=== PATIENT | female | born 1975 | race Caucasian/White ===

== ENCOUNTER 2023-03-08 09:00 | Outpatient (RCR) | payer OTHER, SELFPAY | END 2023-10-07 08:08 | disposition home or self-care (01) | LOC: OT 09:00 | PROVIDERS: PCP Family Medicine; Visit Provider Family Medicine | DX: R51.9 Headache, unspecified (principal) | CPT/HCPCS: 97140; 97530 ==

== ENCOUNTER 2023-10-08 09:09 | Outpatient (RCR) | payer OTHER, SELFPAY | END 2024-07-28 10:53 | disposition home or self-care (01) | LOC: OT 09:09 | PROVIDERS: PCP Family Medicine; Visit Provider Family Medicine | DX: R51.9 Headache, unspecified (principal) | CPT/HCPCS: 97140; 97535 ==

== ENCOUNTER 2024-04-01 13:43 | Outpatient (OUT) | payer OTHER, SELFPAY ==
--- NOTE | 2024-04-01 | US_ITS ---
Patient Name: LUÍS LONDON MR#: [id number] : 1975 Exam Date: 04/01/2024 Ordering Doctor: DR EDUARDO BLEVINS RADIOLOGY REPORT PROCEDURE: US EXTREMITY NONVASCULAR LT COMPARISON: None. INDICATIONS: SCREENING FOR MALIGNANT NEOPLASM OF BREAST Z12.31 QUALITY: Excellent. FINDINGS: Ultrasound of the left axilla, corresponding to the patient's palpable abnormality demonstrate 2 normal-size normal morphology lymph nodes measuring 1.7 x 1.1 x 0.7 cm and 1.8 x 1.2 x 0.9 cm. These lesions demonstrate oval-shaped well-circumscribed with peripheral thin cortex and central hypervascular hyper echogenic meron CONCLUSION: Normal-sized normal morphology left axillary lymph nodes Dictated by: Yaw Truong MD on 04/01/2024 at 14:59 Approved by: Yaw Truong MD on 04/01/2024 at 15:00
--- NOTE | 2024-04-01 | MM_ITS ---
Patient Name: LUÍS LONDON MR#: [id number] : 1975 Exam Date: 04/01/2024 Ordering Doctor: DR EDUARDO BLEVINS RADIOLOGY REPORT PROCEDURE: MM TOMOSYNTHESIS DIAGNOSTIC BI COMPARISON: US EXTREMITY NONVASCULAR LT, 04/01/2024. MG MAMM SCREEN CAROL W CAD, 08/12/2020. MG MAMM SCREEN 3D CAROL CAD, 02/21/2023. INDICATIONS: SCREENING FOR MALIGNANT NEOPLASM OF BREAST Z12.31 Calculator Name NCI Breast Cancer Risk Assessment Tool 5 Year Breast Cancer Risk 1.60% Lifetime Breast Cancer Risk 14.00% Personal Breast Cancer No Personal Ovarian Cancer No Treatments None Family Cancers Grandmother-paternal with uterine cancer at age ~60. LOCATION: [facility] BREAST COMPOSITION: The breasts are extremely dense, which lowers the sensitivity of mammography. FINDINGS: DIAGNOSTIC CATEGORY 1--NEGATIVE. NO CHANGE FROM COMPARISON ASSESSMENT. Scattered benign-appearing lymph nodes are present. RIGHT BREAST: No significant suspicious finding. LEFT BREAST: No significant suspicious finding. RECOMMENDATIONS: ROUTINE MAMMOGRAM AND CLINICAL EVALUATION IN 12 MONTHS. PLEASE NOTE: A NORMAL MAMMOGRAM DOES NOT EXCLUDE THE POSSIBILITY OF BREAST CANCER. A CLINICALLY SUSPICIOUS PALPABLE LUMP SHOULD BE BIOPSIED. Dictated by: Yaw Truong MD on 04/01/2024 at 14:57 Approved by: Yaw Truong MD on 04/01/2024 at 14:59
--- OUTSIDE RECORDS SUMMARY | 2024-04-01 13:54 | XMS_ITS | CCD ---
Author Organization [facility] Care Team Providers Care Netting Weaver Name Role Phone Kimberly Chappell Unavailable DR KIMBERLY CHAPPELL Primary Care Unavailable ERICK, DR KIMBERLY Yost Admitting Unavailable ERICK, DR KIMBERLY Yost Attending Unavailable ERICK, DR KIMBERLY Yost Admitting Unavailable ERICK, DR KIMBERLY Yost Attending Unavailable ADDISON MCARTHUR Primary Care Unavailable ERICK, DR KIMBERLY Yost Consulting Unavailable ERICK, DR KIMBERLY Yost Consulting Unavailable ERICK, DR KIMBERLY Yost Primary Care Unavailable ERICK, DR KIMBERLY Yost Admitting Unavailable ERICK, DR KIMBERLY Yost Attending Unavailable EDUARDO BLEVINS Attending Unavailable EDUARDO BLEVINS Referring Unavailable Allergies Allergy Classification Reported Allergen(s) Allergy Type Date of Onset Reaction(s) Facility (1 source) corticosteroid and/or corticosteroid derivative (FN) Drug allergy 07-29-20 Comment:Addison guzman----Anger/Mo od disturbance [employer] Other (1 source) Allergies Reconciled Propensity to adverse reactions Unknown [employer] Other Medications Current Medications Medication Drug Class(es) Dates Sig (Normalized) Sig (Original) busPIRone hydrochloride 5 mg oral tablet (5 sources) Start: 12-04-2023 Buspirone Active 0 .ROUTE .COMPLEX 180 December 04, 2023 3:12pm TAKE 1 TABLET TWICE A DAY Start: 12-04-2023 End: 12-04-2023 take 5 mg by mouth twice daily Buspirone Discontinued 5 MG PO Twice daily December 04, 2023 1:00am December 04, 2023 3:12pm busPIRone HCl 5 MG TAKE 1 TABLET TWICE A DAY for 30 days Active Continuous Blood Gluc Sensor - (3 sources) Start: 02-13-2023 Continuous Blo od Gluc Sensor - as directed for 30 days February, Active Continuous Blood Gluc Transmit - (3 sources) Start: 02-13-2023 Continuous Blo od Gluc Transmit - as directed for 30 days February, Active sertraline 100 mg oral tablet (6 sources) Serotonin Reuptake Inhibitor Start: 12-27-2023 End: 03-24-2024 Sertraline Active 0 .ROUTE .COMPLEX 90 March 24, 2024 2:20pm TAKE 1 TABLET DAILY Start: 12-27-2023 End: 12-27-2023 take 100 mg by mouth once daily Sertraline Discontinued 100 MG PO Daily December 27, 2023 12:00am December 27, 2023 2:33pm Sertraline HCl 1 00 MG TAKE 1 TABLET DAILY for 90 days Active Sertraline HCl 1 00 MG TAKE 1 TABLET DAILY for 30 days Active Sertraline HCl 1 00 MG TAKE 1 TABLET DAILY for 90 Active Problems Active Problems Problem Classification Problem Date Documented Da te Episodic/Chronic Anxiety disorders (1 source) Anxiety disorder; Translations: [Anxiety disorder, unspecified] Chronic Headache; including migraine (4 sources) Migraine with aura; Translations: [Migraine with aura, not intractable, with status migrainosus] Chronic Lymphadenitis (1 source) Enlarged lymph nodes, unspecified Episodic Menopausal disorders (5 sources) Disorder associated with menstruation AND/OR menopause; Translations: [Unspecified menopausal and perimenopausal disorder] Chronic Mood disorders (1 source) Premenstrual dysphoric disorder; Translations: [Premenstrual dysphoric disorder] Chronic Nonmalignant breast conditions (1 source) Breast lump; Translations: [Unspecified lump in unspecified breast] Episodic Other endocrine disorders (3 sources) Hypoglycemia; Translations: [Hypoglycemia, unspecified] Chronic Other endocrine disorders (1 source) Hypoglycemia, unspecified Chronic Other injuries and conditions due to external causes (1 source) Traumatic AND/OR non-traumatic injury; Translations: [Other injury of unspecified body region, initial encounter] Episodic Other nutritional; endocrine; and metabolic disorders (1 source) Body mass index 25-29 - overweight; Translations: [Body mass index (BMI) 25.0-25.9, adult] Episodic Past or Other Problems Problem Classification Problem Date Documented Da te Episodic/Chronic Other screening for suspected conditions (not mental disorders or infectious disease) (5 sources) Encounter for screening mammogram for malignant neoplasm of breast; Translations: [Encounter for screening for malignant neoplasm of cervix] Onset: 03-21-2022 Episodic Results Test Name Value Interpretation Reference Range Facil ity MG MAMM SCREEN 3D CAROL CADon 02-21-2023 MG MAMM SCREEN 3D CAROL CAD Patient: LUÍS PABLO Exam Date: 02/21/2023 : 1975 Gender:F Ordering : DR KIMBERLY CHAPPELL M.D. Admission #: [id number] Family : Order #: [id number] CLICK HERE TO VIEW EXAM RADIOLOGY REPORT PROCEDURE: MAMMOGRAM SCREENING 3D BILATERAL CAD COMPARISON: MG MAMM SCREEN CAROL W CAD, 08/12/2020. MG MAMM CAROL DIAG W CAD, 10/15/2018. MG MAMM CAROL SCRN W CAD DIG, 01/19/2012. INDICATIONS: Screening mammography Calculator Name NCI Breast Cancer Risk Assessment Tool 5 Year Breast Cancer Risk 1.60% Lifetime Breast Cancer Risk 14.20% Personal Breast Cancer No Personal Ovarian Cancer No Treatments None Family Cancers Grandmother-paternal with uterine cancer at age 60. LOCATION: [facility] BREAST COMPOSITION: Extremely dense, which lowers the sensitivity of mammography. FINDINGS: DIAGNOSTIC CATEGORY 1--NEGATIVE. RIGHT BREAST: No significant suspicious finding. No significant change has occurred. LEFT BREAST: No significant suspicious finding. No significant change has occurred. RECOMMENDATIONS: ROUTINE MAMMOGRAM AND CLINICAL EVALUATION IN 12 MONTHS. PLEASE NOTE: A NORMAL MAMMOGRAM DOES NOT EXCLUDE THE POSSIBILITY OF BREAST CANCER. A CLINICALLY SUSPICIOUS PALPABLE LUMP SHOULD BE BIOPSIED. Dictated by: Pio Neri M.D. on 02/21/2023 at 12:03 Approved by: Pio Neri M.D. on 02/21/2023 at 12:07 Normal [facility] US EXT NON VASC LIMITED LTon 02-21-2023 US EXT NON VASC LIMITED LT EXAMINATION: US EXT NON VASC LIMITED LT HISTORY: Lymphadenopathy ; chronic palpable lump within left axilla COMPARISON: No relevant comparison available. FINDINGS: There are 2 lymph nodes within left axilla corresponding to patient's palpable lumps, 1.9 x 1.1 x 0.6 cm and 2.9 x 1.5 x 0.8 cm. Both have large fatty hilum is and thin cortex. Mild central hilar blood flow. IMPRESSION: 1. Prominent, but otherwise benign-appearing lymph nodes within the left axilla corresponding to patient's lumps. Per patient history, the palpable lumps have been present for approximately 30 years and have been previously biopsied with benign results. Electronically authenticated by: PIO NERI Date: 2023-02-21 08:50 Normal [facility] PAP ACOG PANEL 2: 30 to 65on 03-23-2022 . . Normal [facility] Comment on above: Result Comment: Performed at: WB Performed By: #### [id number] #### [facility] [address] [address] [address] Celeste Montesinos Age Gdln ACOG Testing 30-65 Normal [facility] Comment on above: Performed By: #### [id number] #### [facility] [address] [address] [address] Celeste Montesinos DIAGNOSIS: Comment Normal [facility] Comment on above: Result Comment: NEGATIVE FOR INTRAEPITHE LIAL LESION OR MALIGNANCY. Performed at: WB Performed By: #### [id number] #### [facility] [address] [address] [address] Celeste Montesinos HPV Aptima Negative Normal Negative [facility] Comment on above: Result Comment: This nucleic acid amplif ication test detects fourteen high-risk HPV types (16,18,31,33,35,39,45,51,52,56,58,59,66,68) without differentiation. Performed at: =G Performed By: #### [id number] #### [facility] [address] [address] [address] Celeste Montesinos Methodology: Comment Normal [facility] Comment on above: Result Comment: This liquid based ThinPr ep(R) pap test was screened with the use of an image guided system. Performed at: WB Performed By: #### [id number] #### [facility] [address] [address] [address] Ceelste Montesinos Note: Comment Normal [facility] Comment on above: Result Comment: The Pap smear is a scree brittny test designed to aid in the detection of premalignant and malignant conditions of the uterine cervix. It is not a diagnostic procedure and should not be used as the sole means of detecting cervical cancer. Both false-positive and false-negative reports do occur. . Performed at: WB Performed By: #### [id number] #### [facility] [address] [place] [address] Dr. Celeste Montesinos Performed by: Comment Normal [facility] Comment on above: Result Comment: Andrade Cline [employer] ogjoe (ASCP) Performed at: WB Performed By: #### [id number] #### [facility] [address] [place] [address] Dr. Celeste Montesinos Specimen adequacy: Comment [facility] Comment on above: Result Comment: Satisfactory for evaluat ion. Endocervical and/or squamous metaplastic cells (endocervical component) are present. Performed at: WB Performed By: #### [id number] #### [facility] [address] [place] [address] Dr. Celeste Montesinos Vital Signs Date Time Vital Sign Value Performing Clinician Facility 03-24-2024 14:00-0400 Body height 149.86 cm [facility] 03-24-2024 14:00-0400 Body mass index (BMI) [Ratio] 27.8 kg/m2 [facility] 03-24-2024 14:00-0400 Body weight 62.59 kg [facility] 03-24-2024 14:00-0400 Diastolic blood pressure 68 mm[Hg] [facility] 03-24-2024 14:00-0400 Heart rate 71 /min [facility] 03-24-2024 14:00-0400 Systolic blood pressure 107 mm[Hg] [facility] 02-13-2023 12:15-0400 Body height 151.13 cm Kimberly Chappell Other [employer] Other 02-13-2023 12:15-0400 Body mass index (BMI) [Ratio] 26.41 kg/m2 Kimberly Chappell Other [employer] Other 02-13-2023 12:15-0400 Body weight 60.33 kg Kimberly Chappell Other [employer] Other 02-13-2023 12:15-0400 Diastolic blood pressure 80 mm[Hg] Kimberly Chappell Other [employer] Other 02-13-2023 12:15-0400 SaO2% (BldA) [Mass fraction] 99 % Kimberly Chappell Other [employer] Other 02-13-2023 12:15-0400 Systolic blood pressure 116 mm[Hg] Kimberly Chappell Other [employer] Other Encounters Encounter Date Encounter Type Care Provider Facility Start: 03-24-2024 End: 03-24-2024 ambulatory [facility] Work Phone: Start: 03-24-2024 End: 03-24-2024 Patient encounter procedure [facility] Physician [facility] Work Phone: Start: 03-12-2024 End: 03-12-2024 ambulatory EDUARDO BLEVINS Not Available Start: 09-24-2023 End: 09-24-2023 ambulatory Kimberly Chappell Other [employer] Other Start: 09-24-2023 Telephone encounter Kimberly Chappell [facility] Start: 04-20-2023 End: 04-20-2023 ambulatory Kimberly Chappell Other [employer] Other Start: 04-20-2023 Telephone encounter Kimberly Chappell [facility] Start: 02-23-[address] KIMBERLY CHAPPELL Facil ity:H1 Start: 02-21-[address] KIMBERLY CHAPPELL Facil ity:H1 Start: 02-13-2023 End: 02-13-2023 ambulatory Kimberly Chappell Other [employer] Other Start: 02-13-2023 Office outpatient vi sit 25 minutes Kimberly Chappell [facility] Start: 03-21-2022 End: 03-21-[address] KIMBERLY CHAPPELL Facility: Start: 03-20-2022 Adult health examination Kimberly Chappell Other [employer] Other Procedures Date Procedure Procedure Detail Performing Clinician Screening for malign ant neoplasm of breast Kimberly Chappell Other Payers Date Payer Category Payer Unknown [id number] [id number] [id number] 1975 Unknown [id number] [id number] [id number] 1975 Unknown [id number] [id number] [id number] 1975 Unknown [id number] 2.16.84 [id number] 1961 Unknown [id number] Social History Date Type Detail Facility Unknown if ever smoked [employer] Other Sex Assigned At Sex Assigned At Bir th [employer] Other Start: 1975 Sex Assigned At Female F [facility] Evaluation note 02-13-2023 Note Date & Type Note Facility 02-13-2023 Evaluation note Encounter Date Diagnosis Assessment Notes February, Encounter for screening mammogram for malignant neoplasm of breast (ICD-10 - Z12.31) advised mammogram prior to any HRT therapy February, Lymph node enlargement (ICD-10 - R59.9) will include US w mamm order February, Hypoglycemia (ICD-10 - E16.2) requests CGM for monitoring of her symptoms February, Migraine with aura and with status migrainosus, not intractable (ICD-10 - G43.101) handwrote order for craniosacral therapy. February, Menopausal disorder (ICD-10 - N95.9) >30 min discussion of options of treatment - OTC Rx and compounded products. [employer] Other Evaluation note Note Date & Type Note Facility Evaluation note No Information [facility] [employer] Other Evaluation note Note Date & Type Note Facility Evaluation note No assessment information [facility]: History general Narrative - Reported Note Date & Type Note Facility History general Narrative - Reported Type Surgical History Problem Title : Marco streeter Section - 2, Problem Comment : 2001 and 2004, Problem Status : Active, [facility] [employer] Other Summary Purpose Family History No Family History Records FoundNo Family History Records Found Advance Directives Advance Directive Response Recorded Date/ Time Advance Directives No March 18 2:41pm Chief Complaint and Reason for Visit Chief Complaint refills Additional Source Comments REASON FOR VISIT (unrecogniz ed section and content) discussion about hormonesNo Informationmessage INFORMATION SOURCE (unrecogn ized section and content) DATE CREATED AUTHOR 02/21/2023 [facility] DATE CREATED AUTHOR AUTHOR'S ORGANIZ ATION 03/13/2024 [facility] Care Teams (unrecognized sec tion and content) Team Status: Active Member Role Status Dates Kimberly Chappell MD Primary Care Provider Active Team Status: Inactive Member Role Status Dates Kimberly Chappell MD Primary Care Provide r, Attending Provider Active Start: March 24, 2024 End: March 24, 2024 Goals (unrecognized section and content) Goals may be documented in a n alternate section FOR RECORDS PERTAINING TO PATIENTS WHO ARE OR HAVE BEEN ENROLLED IN A CHEMICAL DEPENDENCY/SUBSTANCEABUSE PROGRAM, SOME INFORMATION MAY BE OMITTED. This clinical summary was aggregated from multiple sources. Caution should be exercised in using it in the provision of clinical care. This summary normalizes information from multiple sources, and as a consequence, information in this document may materially change the coding, format and clinical context of patient data. In addition, data may be omitted in some cases. CLINICAL DECISIONS SHOULD BE BASED ON THE PRIMARY CLINICAL RECORDS. [facility] [employer] [facility]. provides no warranty or guarantee of the accuracy or completeness of information in this document.
== END 2024-04-01 13:44 | disposition home or self-care (01) ==
LOC: MAMMO 13:43
PROVIDERS: PCP Family Medicine; Visit Provider Specialist
DX: R59.9 Enlarged lymph nodes, unspecified (principal); N63.32 Unspecified lump in axillary tail of the left breast; Z80.8 Family history of malignant neoplasm of other organs or systems
CPT/HCPCS: 76882; 77066; G0279

== ENCOUNTER 2025-07-24 08:06 | Outpatient (OUT) | payer OTHER, SELFPAY ==
--- OUTSIDE RECORDS SUMMARY | 2025-07-24 08:13 | XMS_ITS | CCD ---
Author Organization [facility] Care Team Providers Care Recycling Program Manager Name Role Phone Kimberly Suarez Unavailable DR KIMBERLY SUAREZ Primary Care Unavailable SUAREZ, DR KIMBERLY Yost Admitting Unavailable SUAREZ, DR KIMBERLY Yost Attending Unavailable ERICK, DR KIMBERLY Yost Admitting Unavailable ERICK, DR KIMBERLY Yost Attending Unavailable BLUE .ADDISON Primary Care Unavailable ERICK, DR KIMBERLY Yost Consulting Unavailable SUAREZ, DR KIMBERLY Yost Consulting Unavailable SUAREZ, DR KIMBERLY Yost Primary Care Unavailable SUAREZ, DR KIMBERLY Yost Admitting Unavailable ERICK, DR KIMBERLY Yost Attending Unavailable EDUARDO BLEVINS Attending Unavailable EDUARDO BLEVINS Referring Unavailable MD Kimberly Suarez Primary Care Provider MD Dandre Epstein Attending Provider [phone] MD Eduardo Blevins Referring Provider Kimberly Suarez Primary Care Unavailable Dandre Epstein Admitting Unavailable Dandre Epstein Attending Unavailable Eduardo Blevins Referring Unavailable Kimberly Suarez MD Primary Care Provider [phone] Dandre Epstein MD Attending Provider Eduardo Blevins MD Referring Provider Kimberly Suarez MD Primary Care Provider [phone] Allergies Allergy Classification Reported Allergen(s) Allergy Type Date of Onset Reaction(s) Facility (1 source) corticosteroid and/or corticosteroid derivative (FN) Drug allergy 07-29-20 18 Comment:Addison guzman----Anger/Mo od disturbance [employer] Other (1 source) Allergies Reconciled Propensity to adverse reactions Unknown [employer] Other (1 source) Corticosteroids Drug allergy (disorder) 05-16-20 [facility] Repository Medications Current Medications Medication Drug Class(es) Dates Sig (Normalized) Sig (Original) busPIRone hydrochloride 5 mg oral tablet (10 sources) Start: 12-10-2023 busPIRone (Buspar) 5 MG tablet 12/10/2023 Active Start: 12-04-2023 Buspirone 5 mg tablet Active 0 .ROUTE .COMPLEX 180 December 04, 2023 2:12pm TAKE 1 TABLET TWICE A DAY Start: 12-04-2023 End: 12-04-2023 take 1 tablet by mouth twice daily Buspirone 5 mg tablet Discontinued 5 MG PO Twice daily December 04, 2023 12:00am December 04, 2023 2:12pm busPIRone HCl 5 MG TAKE 1 TABLET TWICE A DAY for 30 days Active cholecalciferol 0.125 mg oral tablet (2 sources) Vitamin D Start: 05-30-2024 take 1 tablet by mouth twice daily Cholecalciferol (Vitamin D3) (Vitamin D3) 125 mcg (5,000 unit) tablet Active 125 MCG PO Twice daily May 29, 2024 11:00pm Continuous Blood Gluc Sensor - (3 sources) Start: 02-13-2023 Continuous Blo od Gluc Sensor - as directed for 30 days February, Active Continuous Blood Gluc Transmit - (3 sources) Start: 02-13-2023 Continuous Blo od Gluc Transmit - as directed for 30 days February, Active Magnesium (2 sources) Start: 05-16-2024 take 1 tablet by mouth twice daily Magnesium 200 mg tablet Active 200 MG PO Twice daily May 15, 2024 11:00pm Start: 05-16-2024 take 200 mg by mouth twice janae ly Magnesium Active 200 MG PO Twice daily May 16, 2024 12:00am magnesium gluconate 550 mg oral tablet (1 source) take 1 tablet by mouth in the morning magnesium 30 MG tablet Take 30 mg by mouth in the morning and 30 mg before bedtime. Active sertraline 100 mg oral tablet (13 sources) Serotonin Reuptake Inhibitor Start: 01-02-2024 sertraline (Zoloft) 100 MG tablet 01/02/2024 Active Start: 12-27-2023 End: 03-24-2024 Sertraline 100 mg tablet Act leanne 0 .ROUTE .COMPLEX 90 March 24, 2024 1:20pm TAKE 1 TABLET DAILY Start: 12-27-2023 End: 12-27-2023 take 1 tablet by mouth once daily Sertraline 100 mg tablet Discontinued 100 MG PO Daily December 26, 2023 11:00pm December 27, 2023 1:33pm Sertraline HCl 1 00 MG TAKE 1 TABLET DAILY for 90 days Active Sertraline HCl 1 00 MG TAKE 1 TABLET DAILY for 30 days Active Sertraline HCl 1 00 MG TAKE 1 TABLET DAILY for 90 Active Sod Picosulf-Mag Ox-Citric Ac (2 sources) Start: 04-09-2024 take 1 mL by mouth once daily Sod Picosulf-Mag Ox-Citric Ac (Clenpiq) 10 mg-3.5 gram- 12 gram/175 mL solution Active 175 ML PO Daily 10 08April 08, 2024 11:00pm please follow instructions provided by Dr. Epstein's office. Start: 04-09-2024 take 1 mL by mouth once daily Sod Picosulf-Mag Ox-Citric Ac (Clenpiq) 10 mg-3.5 gram- 12 gram/175 mL solution Active 175 ML PO Daily 10 08April 09, 2024 12:00am please follow instructions provided by Dr. Epstein's office. Completed/Discontinued Medications Medication Drug Class(es) Dates Sig (Normalized) Sig (Original) calcitriol 0.45227 mg oral capsule (1 source) Vitamin D3 Analog End: 09-10-2024 take 1 capsule by mouth once daily calcitriol (Rocaltrol) 0.25 MCG capsule Take 0.25 mcg by mouth Daily 09/10/2024 Discontinued (Entered in error) evening primrose oil 500 mg oral capsule (3 sources) Start: 05-16-2024 End: 09-10-2024 evening primrose oil 500 MG Daily 05/16/2024 09/10/2024 Discontinued (Ineffective) Problems Problem Classification Problem Date Documented Date Episodic/Chronic Anxiety disorders (4 sources) Anxiety disorder; Translations: [Anxiety disorder, unspecified] 03-25-2024 Chronic Headache; including migraine (4 sources) Migraine with aura; Translations: [Migraine with aura, not intractable, with status migrainosus] Chronic Lymphadenitis (6 sources) Enlarged lymph nodes, unspecified; Translations: [Axillary lymphadenopathy] Onset: 09-10-2024 Episodic Menopausal disorders (5 sources) Disorder associated [...] [Body mass index (BMI) 25.0-25.9, adult] Episodic Other screening for suspected conditions (not mental disorders or infectious disease) (6 sources) Encounter for screening mammogram for malignant neoplasm of breast; Translations: [Encounter for screening for malignant neoplasm of cervix] Onset: 03-21-2022 Episodic Results Test Name Value Interpretation Reference Range Facil ity HCG ( test) IA.rapi d Ql (U)Ordered By: Dandre Epstein on 05-30-2024 HCG ( test) Ql (U) Negative [facility] HCG ( test) Ql (U) Urine human chorionic gonadotropin (hCG) detection by immunoassay [facility] HCG,Urineon 05-30-2024 Beta HCG ( test) Ql (U) Negative Normal [facility] Comment on above: Result Comment: PERFORMED BY: [place] [address] PATHOLOGIST MECHANICAL DESIGN ENGINEER RYANNE WILDE M.D. Performed By: #### U HCG #### [address] MG MAMM SCREEN 3D CAROL CADon 02-21-2023 MG MAMM SCREEN 3D CAROL CAD Patient: LUÍS PABLO Exam Date: 02/21/2023 : 1975 Gender:F Ordering : DR KIMBERLY SUAREZ M.D. Admission #: [id number] Family : Order #: [id number] CLICK HERE TO VIEW EXAM RADIOLOGY REPORT [...] uterine cancer at age 58. LOCATION: [facility] BREAST COMPOSITION: Extremely dense, which lowers the [...] M.D. on 02/21/2023 at 12:07 Normal [facility] US EXT NON VASC LIMITED LTon 02-21-2023 [...] by: PIO NERI Date: 2023-02-21 08:50 Normal [facility] PAP ACOG PANEL 2: 30 to 65on 03-23-2022 . . Normal [facility] Comment on above: Result Comment: Performed at: WB Performed By: #### [id number] #### [facility] [address] [place] [address] Dr. Celeste Montesinos Age Gdln ACOG Testing 30-65 Normal [facility] Comment on above: Performed By: #### [id number] #### [facility] [address] [place] [address] Dr. Celeste Montesinos DIAGNOSIS: Comment Normal [facility] Comment on above: Result Comment: NEGATIVE FOR INTRAEPITHE LIAL LESION OR MALIGNANCY. Performed at: WB Performed By: #### [id number] #### [facility] [address] [place] [address] Dr. Celeste Montesinos HPV Aptima Negative Normal Negative [facility] Comment on above: Result Comment: This nucleic acid amplif ication test detects fourteen high-risk HPV types (16,18,31,33,35,39,45,51,52,56,58,59,66,68) without differentiation. Performed at: =G Performed By: #### [id number] #### [facility] [address] [place] [address] Dr. Celeste Montesinos Methodology: Comment Normal [facility] Comment on above: Result Comment: This liquid based ThinPr ep(R) pap test was screened with the use of an image guided system. Performed at: WB Performed By: #### [id number] #### [facility] [address] [place] [address] Dr. Celeste Montesinos Note: Comment Normal [facility] Comment on above: Result Comment: [...] Performed at: WB Performed By: #### [id number] #### [facility] [address] [place] [address] Dr. Celeste Montesinos Performed by: Comment Normal [facility] Comment on above: Result Comment: Isa Hernandez (ASCP) Performed at: WB Performed By: #### [id number] #### [facility] [address] [address] [address] Celeste Montesinos Specimen adequacy: Comment Normal [facility] Comment on above: Result Comment: Satisfactory for evaluat ion. Endocervical and/or squamous metaplastic cells (endocervical component) are present. Performed at: WB Performed By: #### [id number] #### [facility] [address] [address] [address] Celeste Montesinos Vital Signs Date Time Vital Sign Value Performing Clinician Facility 09-10-2024 13:54-0500 Body height 149.9 cm Raymond Itzkowitz DO Work Phone: [facility] 09-10-2024 13:54-0500 Body mass index (BMI) [Ratio] 29.29 kg/m2 Raymond Itzkowitz DO Work Phone: [facility] 09-10-2024 13:54-0500 Body weight 65.77 kg Raymond Itzkowitz DO Work Phone: [facility] 09-10-2024 13:54-0500 Diastolic blood pressure 82 mm[Hg] Raymond Itzkowitz DO Work Phone: [facility] 09-10-2024 13:54-0500 Systolic blood pressure 130 mm[Hg] Raymond Itzkowitz DO Work Phone: [facility] 08-19-2024 11:09-0500 Body height 149.86 cm Kimberly Suarez MD Work Phone: [facility] 08-19-2024 11:09-0500 Body mass index (BMI) [Ratio] 28.8 kg/m2 Kimberly Suarez MD Work Phone: [facility] 08-19-2024 11:09-0500 Body weight 64.86 kg Kimberly Suarez MD Work Phone: [facility] 08-19-2024 11:09-0500 Diastolic blood pressure 79 mm[Hg] Kimberly Suarez MD Work Phone: [facility] 08-19-2024 11:09-0500 Heart rate 73 /min Kimberly Suarez MD Work Phone: [facility] 08-19-2024 11:09-0500 Systolic blood pressure 123 mm[Hg] Kimberly Suarez MD Work Phone: [facility] 05-30-2024 09:01-0400 Diastolic blood pressure 56 mm[Hg] MD Kimberly Suarez Work Phone: [facility] 05-30-2024 09:01-0400 Heart rate 72 /min MD Kimberly Suarez Work Phone: [facility] 05-30-2024 09:01-0400 Respiratory rate 18 /min MD Kimberly Suarez Work Phone: [facility] 05-30-2024 09:01-0400 SaO2% (BldA) [Mass fraction] 99 % MD Kimberly Suarez Work Phone: [facility] 05-30-2024 09:01-0400 Systolic blood pressure 103 mm[Hg] MD Kimberly Suarez Work Phone: [facility] 05-30-2024 07:29-0400 Body height 149.86 cm MD Kimberly Suarez Work Phone: [facility] 05-30-2024 07:29-0400 Body weight 63.5 kg MD Kimberly Suarez Work Phone: [facility] 03-24-2024 14:00-0400 Body height 149.86 cm [facility] 03-24-2024 14:00-0400 Body mass index (BMI) [Ratio] 27.8 kg/m2 [facility] 03-24-2024 14:00-0400 Body weight 62.59 kg [facility] 03-24-2024 14:00-0400 Diastolic blood pressure 68 mm[Hg] [facility] 03-24-2024 14:00-0400 Heart rate 71 /min [facility] 03-24-2024 14:00-0400 Systolic blood pressure 107 mm[Hg] [facility] 02-13-2023 12:15-0400 Body height 151.13 cm Kimberly Suarez Other [employer] Other 02-13-2023 12:15-0400 Body mass index (BMI) [Ratio] 26.41 kg/m2 Kimberly Suarez Other [employer] Other 02-13-2023 12:15-0400 Body weight 60.33 kg Kimberly Suarez Other [employer] Other 02-13-2023 12:15-0400 Diastolic blood pressure 80 mm[Hg] Kimberly Suarez Other [employer] Other 02-13-2023 12:15-0400 SaO2% (BldA) [Mass fraction] 99 % Kimberly Suarez Other [employer] Other 02-13-2023 12:15-0400 Systolic blood pressure 116 mm[Hg] Kimberly Suarez Other [employer] Other Encounters Encounter Date Encounter Type Care Provider Facility Start: 09-10-2024 End: 09-10-2024 Office outpatient new 45 minutes Raymond Domingo Reebkah CONNORS [facility] Comment on above: Lymphadenopathy, axi llary (Primary Dx); Localized enlarged lymph nodes Start: 08-19-2024 End: 08-19-2024 ambulatory Kimberly Suarez MD Work Phone: [facility] Work Phone: Start: 08-19-2024 End: 08-19-2024 Patient encounter procedure Kimberly Suarez MD Work Phone: [facility] Work Phone: Start: 06-04-2024 Non-patient / Non-visit Kimberly Suarez MD Work Phone: [facility] Gastroenterology Work Phone: Start: 05-30-2024 Non-patient / Non-visit MD Kimberly Suarez Work Phone: [facility] Gastroenterology Work Phone: Start: 05-30-2024 End: 05-30-2024 Admission to same day surgery center MD Kimberly Suarez Work Phone: [facility] Work Phone: Start: 05-30-2024 End: 05-30-2024 ambulatory MD Kimberly Suarez Work Phone: [facility] Work Phone: Start: 03-24-2024 End: 03-24-2024 ambulatory [facility] Work Phone: Start: 03-24-2024 End: 03-24-2024 Patient encounter procedure [facility] Work Phone: Start: 03-12-2024 End: 03-12-2024 ambulatory EDUARDO BLEVINS Not Available Start: 09-24-2023 End: 09-24-2023 ambulatory Kimberly Suarez Other [employer] Other Start: 09-24-2023 Telephone encounter Kimberly Suarez [facility] Start: 04-20-2023 End: 04-20-2023 ambulatory Kimberly Suarez Other [employer] Other Start: 04-20-2023 Telephone encounter Kimberly Suarez [facility] Start: 02-23-[address] KIMBERLY SUAREZ Facil ity:H1 Start: 02-21-[address] KIMBERLY SUAREZ Facil ity:H1 Start: 02-13-2023 End: 02-13-2023 ambulatory Kimberly Suarez Other [employer] Other Start: 02-13-2023 Office outpatient visit 25 minutes Kimberly Suarez [facility] Start: 03-21-2022 End: 03-21-[address] KIMBERLY SUAREZ Facility: Start: 03-20-2022 Adult health examination Kimberly Suarez Other [employer] Other Procedures Date Procedure Procedure Detail Performing Clinician Start: 05-30-2024 Screening colonoscopy M Veronique Suarez Work Phone: Start: 03-12-2024 Microscopic observat ion [Identifier] in Cervix by Cyto stain Raymond Welch DO Work Phone: Screening for malign ant neoplasm of breast Kimberly Suarez Other Plan of Treatment Date Care Activity Detail Author Start: 03-12-2029 Screening for malign ant neoplasm of cervix [facility] Start: 03-12-2027 Screening for malign ant neoplasm of cervix Pap Smear [facility] Start: 03-18-2025 End: 03-18-2025 Patient encounter procedure 03/18/2025 11:00 AM EDT Office Visit [facility] [address] [place] [id number] Eduardo Blevins MD [address] [place] [address] [facility] Start: 08-19-2024 Patient referral [facility] Work Phone: Start: 06-08-2024 Influenza vaccination Influenza Vacc ine (#1) [facility] Start: 05-30-2024 [facility] Start: 2013 Screening for malign ant neoplasm of breast Mammogram [facility] Start: 1975 Screening for malign ant neoplasm of colon [facility] Patient Education Hemorrhoids (D C) Know your [facility] Work Phone: Patient referral [facility] Work Phone: Payers Date Payer Category Payer Self-pay 2023 Private Health Insurance [employer] [id number] 1975 Unknown [id number] 1975 Unknown [id number] 1975 Unknown [id number] 1975 Unknown [id number] 1959 Unknown [id number] Unknown [id number] Social History Date Type Detail Facility Unknown if ever smoked [employer] Other Start: 03-12-2024 End: 09-10-2024 Sex Assigned At [employer] Other Start: 1975 Sex Assigned At Female [facility] Work Phone: Start: 08-19-2024 Sex Female (finding) [facility] Start: 03-12-2024 [facility] Start: 03-12-2024 Tobacco use and exposure Smokeless tobacco non-user [facility] Start: 09-10-2024 Alcoholic beverage intake Current drinker of alcohol (finding) [facility] Start: 03-12-2024 End: 09-10-2024 History of Social function [facility] How often to you hav e a drink containing alcohol? Monthly or less [facility] How many standard drinks containing alcohol do you have on a typical day? 1 or 2 [facility] How often do you hav e 6 or more drinks on 1 occasion? Less than monthly [facility] Start: 1975 Sex assigned at Not on file [facility] Goals Date Patient Goal Desired Activity /State Clinical Notes 02-13-2023 to 09-10-2024 Raymond H Rebekah, DO - 09/10/2024 2:00 PM EST Note Date & Type Note Facility 09-10-2024 History of Present illness Narrative Images from the original note were not included. Luís Pablo 1975 Luís Pablo is a 49 y.o. female presents with chief complaint of Consult for Left axillary lymphadenopathy HPI: HPI Luís states she is here to see if she needs to have a lymph node removed. She states she has been having an enlarged axillary LN since her 20's. She states she has mammograms and axillary US that always show it to be normal. She states a month ago the left arm pit was swollen and she had a wearied feeling in the left arm and her fingers felt numb. She states her left breast UOQ occasionally feel tender. SUBJECTIVE: MEDICATIONS: ALLERGIES Current Outpatient Medications Medication Instructions busPIRone (Buspar) 5 MG tablet calcitriol (ROCALTROL) 0.25 mcg, Oral, Daily magnesium 30 mg, Oral, 2 times daily sertraline (Zoloft) 100 MG tablet No Known Allergies PAST MEDICAL HISTORY: SOCIAL HISTORY SURGICAL HISTORY: Past Medical History: Diagnosis Date Depression (CMS/HCC) Enlarged lymph node LT arm Social History Tobacco Use Smoking status: Never Smokeless tobacco: Never Vaping Use Vaping status: Never Used Substance Use Topics Alcohol use: Yes Drug use: Never Past Surgical History: Procedure Laterality Date BREAST BIOPSY LT SECTION, LOW TRANSVERSE FAMILY HISTORY Family History Problem Relation Name Age of Onset Pancreatic cancer Maternal Grandfather Ovarian cancer Paternal Grandmother REVIEW OF SYMPTOMS: Review of Systems Constitutional: Negative for diaphoresis and unexpected weight change. HENT: Positive for tinnitus. Negative for hearing loss and voice change. Breasts: See HPI Respiratory: Negative for shortness of breath. Cardiovascular: Negative for chest pain and palpitations. Musculoskeletal: Positive for arthralgias. Neurological: Positive for headaches. Negative for dizziness and seizures. Psychiatric/Behavioral: The patient is nervous/anxious. Depression & Anxiety All other systems reviewed and are negative. Hematological: Negative for adenopathy. Does not bruise/bleed easily. OBJECTIVE: Visit Vitals LMP (LMP Unknown) Comment: 07/2021 OB Status Postmenopausal Smoking Status Never Physical Exam HENT: Head: Normocephalic. Cardiovascular: Rate and Rhythm: Normal rate and regular rhythm. Pulmonary: Effort: Pulmonary effort is normal. Breath sounds: Normal breath sounds. Chest: Comments: Bilateral supraclavicular, infraclavicular, bicipital and axillary lymph nodes were found to be normal. Each breast was examined in the sitting and supine position, there was no evidence of masses, dimpling or discharge in either breast Abdominal: General: Abdomen is flat. Bowel sounds are normal. Palpations: Abdomen is soft. Skin: General: Skin is warm and dry. Neurological: Mental Status: She is alert. ASSESSMENT AND PLAN: Assessment/Plan Problem List Items Addressed This Visit Lymphadenopathy, axillary - Primary Luís had a mammogram and Lt Ax US on 04/01/24 that showed - Ultrasound of the left axilla, corresponding to the patient's palpable abnormality demonstrate 2 normal-size normal morphology lymph nodes measuring 1.7 x 1.1 x 0.7 cm and 1.8 x 1.2 x 0.9 cm. These lesions demonstrate oval-shaped well-circumscribed with peripheral thin cortex and central hypervascular hyper echogenic meron CONCLUSION: Normal-sized normal morphology left axillary lymph nodes We had a long discussion about LN's and what may cause them to be enlarged. At this time and on the last US of the axilla she does not have lymphadenopathy. She webber not need any surgical evaluation of the axillary LN's. I'll se her PRN. documented in this encounter [facility] 05-30-2024 Procedure note [facility] 02-13-2023 Evaluation note Encounter Date Diagnosis Assessment [...] treatment - OTC Rx and compounded products. [facility] Other [facility] Other Evaluation noteNo assessment information available [facility] Work Phone: Evaluation note* Diagnosis Onset Date Resolution Status Anxiety disorder, unspecified acute [facility] Work Phone: Evaluation note* Diagnosis Onset Date Resolution Status Admit Date Enlarged lymph nodes in armpit acute August 19 024 10:52am [facility] Work Phone: Evaluation note* Diagnosis Lymphadenopathy, axillary- Primary Localized enlarged lymph nodes documented in this encounter [facility] Author Dandre Epstein [facility] May 30, 2024 8:15am Note Date/Time May 30, 2024 8: 15am [facility] [address] [place] [address] Gastroenterology H&P Signed Patient: Luís Pablo MR#: [id number] : 1975 Acct:[id number] Age/Sex: 49 / F Adm Date: 4 Loc: Room: Type: [facility] Attending Dr: Dandre Epstein MD Copies to: MD Kimberly Jordan MD~ Date of Service: 05/30/2024 HISTORY & PHYSICAL: Patient's history with special attention to the cardiovascular, pulmonary systems and the current problem was reviewed with the patient immediately prior to the procedure. Present medications and doses reviewed in the EMR. Allergies and pertinent laboratory tests were also reviewedat this time in the EMR. The physical examination, as below, was then performed. Indication, assessment and HPI: 49-year-old female presents for average risk screening colonoscopy Family history of GI malignancy? no PHYSICAL EXAMINATION Mouth and Pharynx : moist mucus membranes, normal dentition Cardiac: regular rate, regular rhythm Pulmonary: normal respiratory effort, able to speak in complete sentences Neurological: alert and oriented x3, no focal deficits noted Abdomen: Abdomen soft, non-tender REVIEW OF SYSTEMS Constitutional: Denies malaise, fevers Cardiovascular: Denies chest pain, palpitations Respiratory: Denies shortness of breath, wheezing Gastrointestinal: Per HPI Genitourinary: Denies dysuria, polyuria Musculoskeletal: Denies joint swelling, joint stiffness Neurological: Denies numbness, tingling Integumentary: Denies rashes, skin lesions Endocrine: Denies fatigue, weight loss Written informed consent obtained from the patient. Risks (including but not limited to perforation, infection, bloating, bleeding, need for emergent surgeryand loss of life), benefits and alternatives explained and questions answered. The patient verbalized understanding. Based on history patient is an appropriate candidate for the procedure. Dandre Epstein MD Documented By: Dandre Epstein MD 05/30/24814 Signed By: <Electronically signed by Dandre Epstein MD> 05/30/24814 [facility] Work Phone: History general Narrative - Reported* Type Description Date Surgical History Problem Title : Marco streeter Section - 2, Problem Comment : 2001 and 2004, Problem Status : Active, [employer] Other Hospital Discharge instructionsAmbulatory Orders* Referral to General Surgery Time Frame: 08/19/24, Location: None Selected [facility] Work Phone: Summary Purpose Family History Relationship Condition Age at Onset Recorded Date/T nikia paternal grandmother Malignant neoplasm of ovary Unkno wn family member Congestive heart failure Unknown Advance Directives Advance Directive Response Recorded Date/ Time Advance Directives No March 18 2:41pm Advance Directive Response Recorded Date/ Time Advance Directives No March 18 1:41pm Chief Complaint and Reason for Visit Chief Complaint refills Chief Complaint refills Screening Screening Reason for Visit Anxiety disorder, un specified Chief Complaint Admit Date Screening May 30, 2024 7: 02am Screening May 30, 2024 8: 15am Amb Documentation June 04, 2024 2: 11pm Lymph Node August 19, 2024 10:52am Reason for Visit Admit Date Enlarged lymph nodes in armpit August 19, 2024 10:52am Additional Source Comments REASON FOR VISIT (unrecogniz ed section and content) Reason Comments Consult for Left axillary lymphadenopath y Specialty Diagnoses / Procedures Referred By Contac t Referred To Contact General Surgery Diagnoses Localized enlarged lymph nodes Procedures DE OFFICE/OUTPATIENT [facility] Kimberly Suarez MD [address] [facility] [place] [address] Phone: tel: fax: [facility] [address] [facility] [address] [place] [address] Phone: tel: fax: Referral ID Status Reason Start Date Expiration Date V isits Requested Visits Authorized [id number] Closed Specialty Services Required 08/20/2024 02/16/2025 1 1 INFORMATION SOURCE (unrecogn ized section and content) DATE CREATED AUTHOR 02/21/2023 [facility] DATE CREATED AUTHOR AUTHOR'S ORGANIZ ATION 03/13/2024 [facility] EPIC DATE CREATED AUTHOR AUTHOR'S ORGANIZ ATION 06/13/2024 [facility] Care Teams (unrecognized sec tion and content) Team Status: Active Member Role Status Dates Kimberly Suarez MD Primary Care Provider Active Team Status: Inactive Member Role Status Dates Kimberly Suarez MD Primary Care Provide r, Attending Provider Active Start: March 24, 2024 End: March 24, 2024 Team Status: Inactive Member Role Status Dates Kimberly Suarez MD Primary Care Provider Active Start: May 30, 2024 End: May 30, 2024 Dandre Epstein MD Attending Provider Active S tart: May 30, 2024 End: May 30, 2024 Eduardo Blevins MD Referring Provider Active St art: May 30, 2024 End: May 30, 2024 Team Status: Active Member Role Status Dates Kimberly Suarez MD Primary Care Provider Active Start: May 30, 2024 Dandre Epstein MD Attending Provider, Other Provider Active Start: May 30, 2024 Eduardo Blevins MD Referring Provider Active St art: May 30, 2024 Team Status: Active Member Role Status Dates Kimberly Suarez MD Primary Care Provider Active Start: June 04, 2024 Susi Bolanos Attending Provider Active Start: 2023 Team Status: Inactive Member Role Status Dates Kimberly Suarez MD Primary Care Provide r, Attending Provider Active Start: August 19, 2024 End: August 19, 2024 [employer] Relationship Specialty Start Date End Date Kimberly Suarez MD [address] [place] [address] PCP - General Family Medicine 03/12/24 Goals (unrecognized section and content) Goals may [...] BE BASED ON THE PRIMARY CLINICAL RECORDS. [facility] [employer] [facility]. provides no warranty or guarantee of the accuracy or completeness of information in this document.
== END 2025-07-24 08:07 | disposition home or self-care (01) ==
PROVIDERS: PCP Family Medicine; Visit Provider Family Medicine
DX: E34.9 Endocrine disorder, unspecified (principal); M13.80 Other specified arthritis, unspecified site
CPT/HCPCS: 36415; 82306; 82533; 82627; 82670; 82679; 84144; 84403

== ENCOUNTER 2025-08-12 14:52 | Outpatient (RCR) | payer OTHER, SELFPAY | END 2025-08-20 08:56 | disposition home or self-care (01) | LOC: PT 14:52 | PROVIDERS: PCP Family Medicine; Visit Provider Family Medicine | DX: M79.604 Pain in right leg (principal) | CPT/HCPCS: 97035; 97110; 97162 ==